=== PATIENT | female | born 1990 | race Caucasian/White ===

== ENCOUNTER 2018-11-09 07:18 | Day surgery (SDC) | payer OTHER ==
[~2018-11-09 07:18] MED LIST: Acetaminophen TAB* 325 MG PO ONE; Gabapentin CAP(*) 300 MG PO ONE; Lactated Ringers 1000 ML Bag* 1,000 ML IV SCH
[2018-11-09] MEDS ORDERED: Gabapentin CAP(*) 300 MG ONE (07:55)
[2018-11-09] MEDS ORDERED: Buffered Lidocaine 1% SYRIN* 1 ML/SYRINGE ONE (07:55)
[2018-11-09] MEDS ORDERED: ceFAZolin 2 GM PREMIX in ORs 2 GM/50 ML BAG IVPB ONE (07:55)
[2018-11-09] MEDS ORDERED: Acetaminophen TAB* 325 MG ONE (07:55)
[2018-11-09] MEDS ORDERED: fentaNYL* 50 MCG/ML 2 ML VIAL (100 MCG VIAL) ONE (08:19)
[2018-11-09] MEDS ORDERED: Midazolam* 1 MG/ML 2 ML VIAL (2 MG) ONE (08:20)
[2018-11-09] MEDS ORDERED: Bupivacaine 0.5%* 50 ML VIAL ONE (09:03)
[2018-11-09] MEDS ORDERED: Dexamethasone IV* 4 MG/ML 1 ML (4 MG) ONE (09:19)
[2018-11-09] MEDS ORDERED: Famotidine IV* 10 MG/ML 2 ML (20 mg) ONE (09:19)
[2018-11-09] MEDS ORDERED: Ketorolac INJ* 30 MG/ML 1 ML VIAL ONE (09:19)
[2018-11-09] MEDS ORDERED: Propofol* 10 MG/ML 20 ML BTL ONE (09:19)
[2018-11-09] MEDS ORDERED: PROCHLORPERAZINE INJ 5 MG/ML 2 ML VIAL IV PRN (09:48)
[2018-11-09] MEDS ORDERED: fentaNYL* 50 MCG/ML 2 ML VIAL (100 MCG VIAL) IV PRN (09:48)
[2018-11-09] MEDS ORDERED: HYDROcodone/ACETAMIN 5-325 MG* 1 TAB PO PRN ×2 (09:48)
[2018-11-09] MEDS ORDERED: DiMENhydriNATE IV* 50 MG/ML VIAL IV PUSH PRN (09:48)
[2018-11-09] MEDS ORDERED: Naloxone* 0.4 MG/ML 1 ML VIAL IV PRN (09:48)
[2018-11-09] MEDS ORDERED: diPHENhydraMINE IV* 50 MG/ML 1 ml VIAL (BENADRYL) IV PRN (09:48)
[2018-11-09] MEDS ORDERED: Ondansetron INJ* 2 MG/ML VIAL IV PRN (09:48)
[2018-11-09] MEDS ORDERED: diPHENhydraMINE IV* 50 MG/ML 1 ml VIAL (BENADRYL) ONE (09:59)
[2018-11-09 11:54] VITALS: BP 114/76
--- NOTE | 2018-11-09 21:16 | OP ---
DATE OF OPERATION: 11/09/18 - SDS DATE OF : 86 ATTENDING SURGEON: Nico Oliva MD STATISTICAL FINANCIAL ANALYST: YODIT Thompson PRE-OP DIAGNOSIS: Left ankle instability. POST-OP DIAGNOSIS: Left ankle instability. OPERATIVE PROCEDURE: Left ankle ligament repair. DESCRIPTION OF PROCEDURE: The patient was taken to the operating room. Lateral positioning was used. We opened up longitudinally over the distal fibula, raising a subcutaneous flap. The patient had a robust anterior capsule which was reflected away from the anterior and distal portion of the fibula. We inspected the lateral and anterior talar dome and found no osteochondral defect. We then created drill holes posterior to anterior through the distal fibula. After raising the periosteum, we used through-bone sutures of #1 Vicryl and Bob-Jadon repair to bring the capsule up firmly to the anterior and distal fibula. We then brought the periosteum down over the repair with 2- 0 Vicryl. Subcutaneous 2-0 Vicryl sutures, nylon for the skin, and a compression dressing, plaster splint applied. [id number]/[facility]: [id number] MTDD
== END 2018-11-09 11:55 | disposition home or self-care (01) ==
LOC: OR 07:18
PROVIDERS: ATTEND Orthopaedic Surgery
DX: M25.372 Other instability, left ankle (principal)
CPT/HCPCS: 81025; A9270-GY; J0690; J1100; J1200; J1885; J2250; J2704; J3010